=== PATIENT | female | born 1995 | race Caucasian/White ===

== ENCOUNTER 2021-02-26 10:39 | Emergency (ER) | payer OTHER, SELFPAY ==
[2021-02-26 11:02] VITALS: BP 107/66; PULSE 75; RESP 16; TEMP 37.2; O2SAT 100
--- NOTE | 2021-02-26 11:22 | ED.FEMALEGU ---
HPI - Female Genitourinary General Chief complaint: Urogenital-Female Stated complaint: UTI SYMPTOMS Source: patient Mode of arrival: ambulatory Limitations: no limitations History of Present Illness HPI Narrative: 25-year-old female presents to urgent care with complaints of urinary urgency and lower abdominal pressure for the past 2 to 3 days. Patient reports history of urinary tract infections and her symptoms are similar. Patient reports that she took 1 tablet of leftover Cipro last night. Patient denies vaginal discharge, concern for STDs, fever, bodies, chills, nausea, vomiting or diarrhea. Onset (ago): day(s) (2) Vaginal discharge: none Vaginal bleeding: none Urinary symptoms: Urgency Exacerbating factors: none Relieving factors: none Related Data Home Medications Medication Instructions Recorded Confirmed norgestimate-ethinyl estradiol 1 tablet PO DAILY 02/26/21 02/26/21 [Sprintec (28)] Allergies Allergy/AdvReac Type Severity Reaction Status Date / Time cefuroxime Allergy Unknown Unknown Verified 01/12/19 03:36 Review of Systems Constitutional: Constitutional: Denies chills and Denies fatigue Cardiovascular: Cardiovascular: Denies chest pain Respiratory: Respiratory: Denies cough, Denies dyspnea and Denies wheezing Gastrointestinal: Gastrointestinal: Denies diarrhea, Denies nausea and Denies vomiting Comments: lower abdominal pressure Genitourinary: Genitourinary: Denies nocturia, Denies dysuria, Denies flank pain, Denies urinary incontinence and Denies vaginal discharge Comments: Urinary urgency Neurologic: Denies dizziness PMFSH Social History Social History (Updated 02/26/21 @ 11:26 by Alexandria Adamson, [employer]SE [employer]AD[employer]) Smoking status: Never smoker Comments At time of signature, I agree with nursing past medical, surgical, social and family history. There is no relevant family history pertinent to the presenting complaint. Exam Const: General: no acute distress and alert Nutritional Appearance: well nourished Orientation/consciousness: patient oriented x3 Neck: Neck: normal visual inspection Resp: Effort & Inspection: normal respiratory effort Auscultation: clear to auscultation bilaterally Cardio: Rate: regular rate Rhythm: regular rhythm GI: GI Palp: Yes Soft to palpation, No Guarding due to palpation present (GI), No Rigid due to palpation, No Hernia present, No Palpable mass present and No Rebound tenderness present Auscultation: normal bowel sounds Other: Mild pain noted to suprapubic region upon palpation. : General: Yes bladder normal to palpation and Yes no CVA tenderness Back/Spine/Pelvis: Back: no CVA tenderness Skin: General skin exam: normal color Rashes: no rashes Neuro: General: patient oriented x3 and moves all extremities Speech: normal speech Extrem: General: normal to inspection Psych: Affect: normal affect Attitude: cooperative Thought content: Yes Normal thought content present Course Vital Signs Vital signs: Vital Signs Temperature 37.2 C 02/26/21 11:02 Pulse Rate 75 02/26/21 11:02 Respiratory Rate 16 02/26/21 11:02 Blood Pressure 107/66 02/26/21 11:02 Pulse Oximetry 100 02/26/21 11:02 Temperature 37.2 C 02/26/21 11:02 Pulse Rate 75 02/26/21 11:02 Respiratory Rate 16 02/26/21 11:02 Blood Pressure 107/66 02/26/21 11:02 Pulse Oximetry 100 02/26/21 11:02 MDM - Female Genitourinary MDM Narrative Medical decision making narrative: Urine culture obtained and sent to lab. Patient declines concern for STD testing. Patient agrees to take medications as prescribed. Patient agrees to monitor symptoms closely and proceed to the emergency room if symptoms worsen Differential Diagnosis Differential diagnosis: Likely bacterial vaginosis, trichomoniasis and cystitis Lab Data Labs: Urine Glucose Negative Reference Range: Negative Urine Bilirubin
== END 2021-02-26 11:35 | disposition home or self-care (01) ==
PROVIDERS: Emergency Provider Nurse Practitioner Family; PCP Physician Assistant Medical
DX: N30.00 Acute cystitis without hematuria (principal)
CPT/HCPCS: 81003; 87086; 99213; G0463

== ENCOUNTER 2022-11-03 16:33 | Emergency (ER) | payer OTHER, SELFPAY ==
--- NOTE | 2022-11-03 16:37 | ED.EAR ---
HPI - Ear Problem General Chief complaint: Ear Stated complaint: rt ear pain Time Seen by Provider: 11/03/22 16:37 Source: patient Mode of arrival: ambulatory Limitations: no limitations History of Present Illness HPI Narrative: Irma is a 26-year-old female patient presenting to the clinic today with complaints of right ear pain 3-4 days. Thinks that her ear may be coming infected. She reports has had a sinus infection for 3-4 weeks. She is taking doxycycline for this. States that she did get a steroid injection last week for the sinusitis however that has not improved very much. No fever or chills Related Data Home Medications Medication Instructions Recorded Confirmed norgestimate 0.25 mg-ethinyl 1 tablet PO DAILY 10/13/22 11/03/22 estradiol 35 mcg tablet (Merry) doxycycline hyclate 100 mg capsule 100 mg PO DAILY 11/03/22 11/03/22 Allergies Allergy/AdvReac Type Severity Reaction Status Date / Time cefuroxime AdvReac Mild Hives Verified 11/03/22 16:46 Review of Systems Review of Systems: Pertinent positives per HPI. Patient denies any fever, chills, rash, headache, visual changes, dizziness, shortness of breath, chest pain, palpitations, nausea, vomiting, diarrhea, constipation, abdominal pain, or any urinary issues. PMFSH Social History Social History Smoking status: Never smoker Alcohol intake: never Substance use: never Substance use type: does not use Lack of Transportation: No Lack of Food: Never True Current Housing: I Have Housing Concerned About Future Housing: No Difficulty Paying Gas/Electric Bills: No Difficulty Paying for Meds: No Currently Unemployed: No Education: High School Diploma/GED Difficulty w/ Childcare or Family Care: No Gender identity (if verbalized by the patient): Female Sexual Orientation (if Verbalized by the Patient): Straight or Heterosexual Comments At the time of my signature, I reviewed and agree with the nursing past medical, surgical, social, and family history. There is no relevant family history pertinent to the patient complaint. Exam Narrative: General: Well-developed, well nourished, in no apparent distress Head: Normocephalic, atraumatic Eyes: Pupils equally round and reactive to light bilaterally, EOM intact, sclera and conjunctive clear, no discharge, lids normal Ears: Left TMs intact and congested, right TM intact, red, and congested with mild bulging, ear canals clear, no drainage, grossly hearing normal. Nose: Nares patent, clear nares discharge, moderate inflammation, maxillary sinus tenderness. Mouth: Oral pharynx without lesions or masses, good dentition, MMM. Neck: Supple, trachea midline, no enlargement of anterior or posterior cervical nodes, no thyroid masses or goiter palpable. Cardio: Regular rate and rhythm, s1 and s2 normal, no murmur appreciated. Resp: Clear to auscultation bilaterally, no rhonchi, rales, wheezing or rubs Course Course Emergency Course: Portions of this record may have been created with voice recognition software. Level of Care: Express Care Visit Vital Signs Vital signs: Vital signs reviewed Medical Decision Making MDM Narrative Medical decision making narrative: At the time of visit patient is resting comfortably on the exam table. I suspect patient has right otitis media. Prescription for azithromycin and prednisone was sent to the pharmacy and she is encouraged to continue doxycycline. Supportive measures were discussed with the patient she voiced understanding of discharge instructions and agrees to treatment plan. Differential Diagnosis Differential Diagnosis: Otitis media, otitis externa, eustachian tube dysfunction, upper respiratory infection Discharge Plan Discharge Clinical Impression: Otitis media Qualifiers: Otitis media type: suppurative Chronicity: acute Laterality: right Recurrence: non-recurrent S
[2022-11-03 16:44] VITALS: BP 119/75; PULSE 73; RESP 18; TEMP 36.4; O2SAT 100
== END 2022-11-03 16:50 | disposition home or self-care (01) ==
PROVIDERS: Emergency Provider Nurse Practitioner Family; PCP Physician Assistant Medical
DX: H66.001 Acute suppurative otitis media without spontaneous rupture of ear drum, right ear (principal)
CPT/HCPCS: 99213; G0463

== ENCOUNTER 2023-11-13 11:59 | Emergency (ER) | payer BC, SELFPAY ==
--- NOTE | 2023-11-13 12:02 | ED.URI ---
HPI - URI/Sore Throat General Chief Complaint: Upper Respiratory Infection Stated Complaint: Sinus Infection Time Seen by Provider: 11/13/23 12:05 Source: patient, RN notes reviewed and old records reviewed Mode of arrival: ambulatory Limitations: no limitations History of Present Illness HPI Narrative: 27-year-old female presents to the [facility] with complaints of sinus pressure and a runny nose since last night. No treatment prior to arrival. Denies any other symptoms. Denies fevers. Denies concern for flu were COVID Related Data Home Medications Medication Instructions Recorded Confirmed norgestimate 0.25 mg-ethinyl 1 tablet PO DAILY 10/13/22 11/03/22 estradiol 35 mcg tablet (Merry) Allergies Allergy/AdvReac Type Severity Reaction Status Date / Time cefuroxime AdvReac Mild Hives Verified 04/03/23 11:54 Review of Systems Review of Systems: All systems reviewed & are unremarkable except as noted in HPI and below Constitutional: Constitutional: Reports no additional constitutional complaints Eyes: Eyes: Reports no additional eye complaints ENT: Reports as per HPI, Reports nasal discharge and Reports sinus pressure Cardiovascular: Cardiovascular: Reports no additional cardiovascular complaints, Denies chest pain and Denies dyspnea Respiratory: Respiratory: Reports no additional respiratory complaints, Denies chest congestion, Denies cough and Denies dyspnea Gastrointestinal: Gastrointestinal: Reports no additional gastrointestinal complaints, Denies abdominal pain, Denies nausea and Denies vomiting Musculoskeletal: Musculoskeletal: Reports no additional musculoskeletal complaints Integumentary/Breasts: Skin/Breast: Reports system reviewed and no additional complaints, except as docu Neurologic: Reports system reviewed and no additional complaints, except as documented Psychiatric: Psychiatric: Reports no additional psychiatric complaints Allergic/Immunologic: Allergic/Immunologic: Reports no additional allergic/immunologic complaints [facility] Surgical History Surgical History History of tonsillectomy and adenoidectomy History of wisdom tooth extraction 2020 Social History Social History Smoking status: Never smoker Alcohol intake: never Substance use: never Substance use type: does not use Lack of Transportation: No Lack of Food: Never True Current Housing: I Have Housing Concerned About Future Housing: No Difficulty Paying Gas/Electric Bills: No Difficulty Paying for Meds: No Currently Unemployed: No Education: High School Diploma/GED Difficulty w/ Childcare or Family Care: No Living arrangements: with family Occupation/Education: occupation Gender identity (if verbalized by the patient): Female Sexual Orientation (if Verbalized by the Patient): Straight or Heterosexual Comments At the time of my signature, I reviewed and agree with the nursing past medical, surgical, social, and family history. There is no relevant family history pertinent to the patient complaint. Exam Const: General: cooperative, healthy appearing, comfortable, no acute distress, well developed, alert and well nourished Nutritional Appearance: well nourished Orientation/consciousness: patient oriented x3 Limitations: no limitations HENMT: Head: normal to inspection Ears: hearing grossly normal bilaterally, external ears normal, TM's normal bilaterally, EAC's normal, mastoids normal and no periauricular adenopathy Face/Nose/Sinus: Normal external nose present, Normal nares present, Normal nasal mucous membranes and turbinates present, Normal septum present, No nasal discharge present, normal facial exam and face symmetric Face and sinus: normal facial exam, sinuses nontender, face symmetric and normal transillumination of the sinuses Mouth: Yes Normal oral and palatal mucosa present,
--- NOTE | 2023-11-13 19:19 | PC.NURSE ---
12:00p.m.vitals 5ft3,48.5k, 97.3temp., 126/76, 100% on room air, 82 HR
== END 2023-11-13 12:25 | disposition home or self-care (01) ==
PROVIDERS: Emergency Provider Nurse Practitioner; PCP Physician Assistant Medical
DX: J32.9 Chronic sinusitis, unspecified (principal)
CPT/HCPCS: 99211; G0463

== ENCOUNTER 2024-01-10 19:22 | Emergency (ER) | payer BC, SELFPAY ==
[2024-01-10 19:38] VITALS: BP 99/48; PULSE 115; RESP 18; TEMP 37.2; O2SAT 100
--- NOTE | 2024-01-10 19:44 | ED.URI ---
HPI - URI/Sore Throat General Chief Complaint: Upper Respiratory Infection Stated Complaint: lower extremity injury Time Seen by Provider: 01/10/24 19:45 Source: patient, RN notes reviewed and old records reviewed Mode of arrival: ambulatory Limitations: no limitations History of Present Illness HPI Narrative: 28-year-old female to Express Care with complaint of body aches, headache, sore throat and temp of 100.3? that started this morning. Patient endorses recent exposure to someone with influenza. Patient denies nausea, vomiting, diarrhea, abdominal pain. Patient able to tolerate fluids by mouth. Patient in no acute distress. Related Data Home Medications Medication Instructions Recorded Confirmed norgestimate 0.25 mg-ethinyl 1 tablet PO DAILY 10/13/22 01/10/24 estradiol 35 mcg tablet (Merry) apixaban 5 mg tablet (Eliquis) mg 01/10/24 Allergies Allergy/AdvReac Type Severity Reaction Status Date / Time cefuroxime AdvReac Mild Hives Verified 01/10/24 19:38 Review of Systems Review of Systems: All systems reviewed & are unremarkable except as noted in HPI and below Constitutional: Constitutional: Reports as per HPI, Reports body ache(s), Reports chills and Reports fever(s) Eyes: Eyes: Reports no additional eye complaints ENT: Reports as per HPI, Reports nasal discharge and Reports sore throat Cardiovascular: Cardiovascular: Reports no additional cardiovascular complaints, Denies chest pain and Denies dyspnea Respiratory: Respiratory: Reports no additional respiratory complaints, Denies cough and Denies dyspnea Musculoskeletal: Musculoskeletal: Reports no additional musculoskeletal complaints Neurologic: Reports system reviewed and no additional complaints, except as documented Psychiatric: Psychiatric: Reports no additional psychiatric complaints [facility] Surgical History Surgical History History of tonsillectomy and adenoidectomy History of wisdom tooth extraction 2020 Social History Social History Smoking status: Never smoker Alcohol intake: never Substance use: never Substance use type: does not use Lack of Transportation: No Lack of Food: Never True Current Housing: I Have Housing Concerned About Future Housing: No Difficulty Paying Gas/Electric Bills: No Difficulty Paying for Meds: No Currently Unemployed: No Education: High School Diploma/GED Difficulty w/ Childcare or Family Care: No Living arrangements: with family Occupation/Education: occupation Gender identity (if verbalized by the patient): Female Sexual Orientation (if Verbalized by the Patient): Straight or Heterosexual Comments At the time of my signature, I reviewed and agree with the nursing past medical, surgical, social, and family history. There is no relevant family history pertinent to the patient complaint. Exam Const: General: cooperative, no acute distress, alert, ill appearing, uncomfortable and well nourished Nutritional Appearance: well nourished Orientation/consciousness: patient oriented x3 Limitations: no limitations HENMT: Head: normal to inspection Ears: external ears normal Face/Nose/Sinus: Normal external nose present, Normal nares present, normal facial exam, No erythema and No edema Face and sinus: normal facial exam, no erythema and no edema Mouth: Yes Normal oral and palatal mucosa present Throat: posterior oropharynx abnormal erythema and exudates and postnasal drainage Eyes: General: appearance normal, both eyes and all related structures Neck: Neck: normal visual inspection, full ROM and no meningeal signs Lymphatic: no lymphadenopathy noted and no lymphedema noted Chest: Chest palpation & inspection: normal inspection of the chest Resp: Effort & Inspection: normal respiratory effort and able to speak in complete sentences Auscultation: cl
[2024-01-10 19:56] VITALS: BP 99/51; PULSE 101
== END 2024-01-10 20:08 | disposition home or self-care (01) ==
PROVIDERS: Emergency Provider Nurse Practitioner Family; PCP Physician Assistant Medical
DX: J02.0 Streptococcal pharyngitis (principal); Z20.822 Contact with and (suspected) exposure to COVID-19
CPT/HCPCS: 87426; 87804; 87880; 99213; G0463

== ENCOUNTER 2024-05-08 12:34 | Emergency (ER) | payer BC, SELFPAY ==
[2024-05-08 12:41] VITALS: BP 108/82; PULSE 73; RESP 18; TEMP 36.3; O2SAT 100
--- NOTE | 2024-05-08 12:46 | ED.BACK ---
HPI - Back Pain/Injury General Chief Complaint: Back Pain/Injury Stated Complaint: Lower Back Swelling Time Seen by Provider: 05/08/24 12:46 History of Present Illness HPI Narrative: patient presents with complaints of swelling to the lower back. She denies any injury or trauma. She reports symptoms have been present for a couple of days. She reports mild tenderness on palpation. She voices no other concerns or complaints at this time. Related Data Home Medications Medication Instructions Recorded Confirmed norgestimate 0.25 mg-ethinyl 1 tablet PO DAILY 10/13/22 05/08/24 estradiol 35 mcg tablet (Merry) Allergies Allergy/AdvReac Type Severity Reaction Status Date / Time cefuroxime AdvReac Mild Hives Verified 05/08/24 12:44 Review of Systems Review of Systems: All systems reviewed & are unremarkable except as noted in HPI and below Constitutional: Constitutional: Reports no additional constitutional complaints ENT: Reports system reviewed and no additional complaints, except as documented Cardiovascular: Cardiovascular: Reports no additional cardiovascular complaints Respiratory: Respiratory: Reports no additional respiratory complaints Gastrointestinal: Gastrointestinal: Reports no additional gastrointestinal complaints Integumentary/Breasts: Skin/Breast: Reports skin swelling ( Sacral area) [facility] Past Medical History Medical History Acute sinusitis Surgical History Surgical History History of tonsillectomy and adenoidectomy History of wisdom tooth extraction 2020 Family History Family History Grandparent Asthma Hypertension Leukemia Diabetes mellitus Social History Social History Smoking status: Never smoker Alcohol intake: never Substance use: never Substance use type: does not use Lack of Transportation: No Lack of Food: Never True Current Housing: I Have Housing Concerned About Future Housing: No Difficulty Paying Gas/Electric Bills: No Difficulty Paying for Meds: No Currently Unemployed: No Education: High School Diploma/GED Difficulty w/ Childcare or Family Care: No Living arrangements: with family Occupation/Education: occupation Gender identity (if verbalized by the patient): Female Sexual Orientation (if Verbalized by the Patient): Straight or Heterosexual Exam Const: General: cooperative, no acute distress, alert and awake Orientation/consciousness: oriented to person, oriented to place and oriented to time HENMT: Head: normal to inspection Resp: Effort & Inspection: normal respiratory effort and able to speak in complete sentences Auscultation: clear to auscultation bilaterally, no crackles, no rales, no rhonchi and no wheezes Cardio: Palpation: normal PMI Rate: regular rate Rhythm: regular rhythm Heart sounds: S1 normal heart sound present and S2 normal heart sound present Skin: Full body images: 1. mild swelling Neuro: General: oriented to person, oriented to place and oriented to time Cranial nerves: Yes CN's II-XII intact bilaterally Psych: Appearance: grossly normal Thought process: Normal thought process present Insight: Good insight present (Psych) Judgement: Good judgement present (Psych) Course Course Level of Care: Express Care Visit Vital Signs Vital signs: Vital Signs Temperature 97.3 F L 05/08/24 12:41 Pulse Rate 73 05/08/24 12:41 Respiratory Rate 05/08/24 12:41 Blood Pressure 108/82 05/08/24 12:41 Pulse Oximetry 100 05/08/24 12:41 Oxygen Delivery Room Air 05/08/24 12:41 Temperature 97.3 F L 05/08/24 12:41 Pulse Rate 73 05/08/24 12:41 Respiratory Rate 18 05/08/24 12:41 Blood Pressure 108/82 05/08/24 12:41 Pulse Oximetry 100 05/08/24 12:
== END 2024-05-08 12:57 | disposition home or self-care (01) ==
PROVIDERS: Emergency Provider Nurse Practitioner Family; PCP Physician Assistant Medical
DX: M54.50 Low back pain, unspecified (principal)
CPT/HCPCS: 99213; G0463

== ENCOUNTER 2024-10-01 10:45 | Emergency (ER) | payer BC, SELFPAY ==
[2024-10-01 10:58] VITALS: BP 112/78; PULSE 73; RESP 16; TEMP 36.4; O2SAT 100
--- NOTE | 2024-10-01 11:10 | ED_ITS ---
HPI - Ear Problem General Chief complaint: Ear Stated complaint: ear infection Time Seen by Provider: 10/01/24 11:04 Source: patient and RN notes reviewed Mode of arrival: ambulatory Limitations: no limitations History of Present Illness HPI Narrative: Patient presents today with a 2 day history of bilateral ear pressure and popping. Denies pain. She has tried some Mucinex without much relief. Related Data Home Medications ?Medication ?Instructions ?Recorded ?Confirmed ?Last Taken ?Type norgestimate 0.25 mg-ethinyl 1 tablet PO DAILY 10/13/22 05/08/24 Unknown History estradiol 35 mcg tablet (Merry) Allergies Allergy/AdvReac Type Severity Reaction Status Date / Time cefuroxime Allergy Mild Hives Verified 10/01/24 10:59 Review of Systems Review of Systems: CONSTITUTIONAL: Denies body aches, fever, chills, or sweats. EYES: Denies visual changes, redness, or discharge. ENT: Denies rhinorrhea, congestion, sore throat, or otalgia.+ bilateral ear pressure and popping CARDIOVASCULAR: Denies chest pain, palpitations, or edema. RESPIRATORY: Denies cough or dyspnea. GASTROINTESTINAL: Denies abdominal pain, nausea, vomiting, or diarrhea. GENITOURINARY: Denies dysuria or hematuria. SKIN: Denies rash, itching, or wounds. MUSCULOSKELETAL: Denies back pain, joint pain, or myalgia. NEUROLOGIC: Denies headache, numbness, tingling, or weakness. PSYCH: Denies depression or anxiety. [facility] Past Medical History Medical History Acute sinusitis Surgical History Surgical History History of tonsillectomy and adenoidectomy History of wisdom tooth extraction 2020 Family History Family History Grandparent Asthma Hypertension Leukemia Diabetes mellitus Social History Social History Smoking status: Never smoker Alcohol intake: never Substance use: never Substance use type: does not use Lack of Transportation: No Lack of Food: Never True Current Housing: I Have Housing Concerned About Future Housing: No Difficulty Paying Gas/Electric Bills: No Difficulty Paying for Meds: No Currently Unemployed: No Education: High School Diploma/GED Difficulty w/ Childcare or Family Care: No Living arrangements: with family Occupation/Education: occupation Gender identity (if verbalized by the patient): Female Sexual Orientation (if Verbalized by the Patient): Straight or Heterosexual Comments At time of signature, I have reviewed and agree with nursing past medical, surgical, social and family history unless otherwise noted. Please see nursing chart for further information. There is no relevant family history pertinent to the presenting complaint Exam Narrative: GENERAL: Well-appearing, well-nourished, and in no acute distress. HEAD: Normocephalic, atraumatic. EYES: EOMI. No redness or drainage. Conjunctivae normal. ENT: Mucous membranes pink and moist. Nares clear. No rhinorrhea. TMs normal bilaterally with mild bilateral middle ear effusions without evidence of bacterial infection. NECK: Normal AROM. Supple. No lymphadenopathy. CHEST: No respiratory distress. EXTREMITIES: Normal range of motion. No edema. SKIN: Warm, dry, no rash. Capillary refill normal. Normal skin turgor. NEURO: No focal deficits. Alert and oriented x3. Gait steady. PSYCH: Normal affect. No signs of depression or anxiety. Course Course Level of Care: Express Care Visit Vital Signs Vital signs: Vital Signs Temperature 97.5 F L 10/01/24 10:58 Pulse Rate 73 10/01/24 10:58 Respiratory Rate 16 10/01/24 10:58 Blood Pressure 112/78 10/01/24 10:58 Pulse Oximetry 100 10/01/24 10:58 Oxygen Delivery Room Air 10/01/24 10:58 Temperature 97.5 F L 10/01/24 10:58 Pulse Rate 73 10/01/24 10:58 Respiratory Rate 16 10/01/24 10:58 Blood Pressure 112/78 10/01/24 10:58 Pulse Oximetry 100 10/01/24 10:58 Oxygen Delivery Room Air 10/01/24 10:58 Reviewed Medical Decision Making MDM Narrative Medical decision making narrative: Patient has some mild middle ear effusions. Recommend decongestant and Flonase. No prescription medications indicated at this time. Anticipatory guidance given. Differential Diagnosis Differential Diagnosis: Otitis media, otitis externa, ruptured TM, serous otitis, cerumen impaction Vital Signs Vital Signs: Vital Signs Temperature 97.5 F L 10/01/24 10:58 Pulse Rate 73 10/01/24 10:58 Respiratory Rate 16 10/01/24 10:58 Blood Pressure 112/78 10/01/24 10:58 Pulse Oximetry 100 10/01/24 10:58 Oxygen Delivery Room Air 10/01/24 10:58 Temperature 97.5 F L 10/01/24 10:58 Pulse Rate 73 10/01/24 10:58 Respiratory Rate 16 10/01/24 10:58 Blood Pressure 112/78 10/01/24 10:58 Pulse Oximetry 100 10/01/24 10:58 Oxygen Delivery Room Air 10/01/24 10:58 Critical Care Time Critical Care Time Critical Care Time: No Discharge Plan Discharge Clinical Impression: Acute serous otitis media, bilateral Patient Disposition: Home, Self-Care Condition: Stable Instructions: Fluid In The Ear (Serous Otitis Media) (ED) Additional Instructions: You have a small amount of fluid behind both eardrums, but no evidence of infection. Please use a decongestant such as Sudafed and consider an intranasal steroid such as Flonase to help drain this fluid. Take Tylenol or ibuprofen for pain if needed. Follow-up with your PCP next week if symptoms are not improving. Patient Language: Mongolian Prescriptions: No Action norgestimate-ethinyl estradiol [Merry] 0.25-35 mg-mcg tablet 1 tablet PO DAILY Follow-up/Referrals: Pam Colón PA-C [Primary Care Provider] - Time of Disposition: 11:14
== END 2024-10-01 11:25 | disposition home or self-care (01) ==
PROVIDERS: Emergency Provider Nurse Practitioner; PCP Physician Assistant Medical
DX: H65.03 Acute serous otitis media, bilateral (principal)
CPT/HCPCS: 99211; G0463

== ENCOUNTER 2025-07-01 09:11 | Emergency (ER) | payer OTHER, SELFPAY ==
--- NOTE | 2025-07-01 09:16 | ED.GENADULT ---
HPI - General Adult General Chief complaint: Abdominal Pain Stated complaint: Abd Pain Time Seen by Provider: 07/01/25 09:16 Source: patient Mode of arrival: ambulatory Limitations: no limitations History of Present Illness HPI narrative: Pt is a 29 y/o female presenting with c/o LUQ pain x 1 week. She reports sharp pain x 2 days and now a dull ache with palpation--pain has improved. No N,V,D,Constipation. NO known injury. 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 No alleviating or aggravating factors. NO additional complaints. Related Data Home Medications ?Medication ?Instructions ?Recorded ?Confirmed ?Last Taken ?Type norgestimate 0.25 mg-ethinyl 1 tablet PO DAILY 10/13/22 07/01/25 Unknown History estradiol 0.035 mg tablet (Merry) Allergies Allergy/AdvReac Type Severity Reaction Status Date / Time cefuroxime Allergy Mild Hives Verified 07/01/25 09:19 Review of Systems Review of Systems: CONSTITUTIONAL: Denies body aches, fever, chills, or sweats. EYES: Denies visual changes, redness, or discharge. ENT: Denies rhinorrhea, congestion, sore throat, or otalgia. CARDIOVASCULAR: Denies chest pain, palpitations, or edema. RESPIRATORY: Denies cough or dyspnea. GASTROINTESTINAL: Reports abdominal pain, denies nausea, vomiting, or diarrhea. GENITOURINARY: Denies dysuria or hematuria. SKIN: Denies rash, itching, or wounds. MUSCULOSKELETAL: Denies back pain, joint pain, or myalgia. NEUROLOGIC: Denies headache, numbness, tingling, or weakness. PSYCH: Denies depression or anxiety. All systems reviewed & are unremarkable except as noted in HPI and below (HPI) [facility] Past Medical History Medical History Acute sinusitis Surgical History Surgical History History of tonsillectomy and adenoidectomy History of wisdom tooth extraction 2020 Family History Family History Grandparent Asthma Hypertension Leukemia Diabetes mellitus Social History Social History (Reviewed 07/01/25 @ 10:23 by NIK Everett Smoking status: Never smoker Alcohol intake: never Substance use: never Substance use type: does not use Lack of Transportation: No Lack of Food: Never True Current Housing: I Have Housing Concerned About Future Housing: No Difficulty Paying Gas/Electric Bills: No Difficulty Paying for Meds: No Currently Unemployed: No Education: High School Diploma/GED Difficulty w/ Childcare or Family Care: No Living arrangements: with family Occupation/Education: occupation Gender identity (if verbalized by the patient): Female Sexual Orientation (if Verbalized by the Patient): Straight or Heterosexual Exam Narrative: GENERAL: Well-appearing, well-nourished, and in no acute distress. HEAD: Normocephalic, atraumatic. EYES: EOMI. No redness or drainage. Conjunctivae normal. NECK: Normal AROM. Supple. CHEST: No respiratory distress. Clear to auscultation. HEART: Regular rate and rhythm. No murmur appreciated. Normal peripheral pulses. ABDOMEN: Soft, nontender, nondistended, normal active bowel sounds. No CVAT MUSCULOSKELETAL: No bony tenderness. EXTREMITIES: Normal range of motion. No edema. SKIN: Warm, dry, no rash. Capillary refill normal. Normal skin turgor. NEURO: No focal deficits. Alert and oriented x3. Gait steady. PSYCH: Normal affect. No signs of depression or anxiety. Course Course Level of Care: Express Care Visit Vital Signs Vital signs: Vital Signs Temperature 97.1 F L 07/01/25 09:31 Pulse Rate 82 07/01/25 09:31 Respiratory Rate 16 07/01/25 09:31 Blood Pressure 118/92 H 07/01/25 09:31 Pulse Oximetry 100 07/01/25 09:31 Oxygen Delivery Room Air 07/01/25 09:31 Temperature 97.1 F L 07/01/25 09:31 Pulse Rate 82 07/01/25 09:31 Respiratory Rate 16 07/01/25 09:31 Blood Pressure 118/92 H 07/01/25 09:31 Pulse Oximetry 100 07/01/25 09:31 Oxygen Delivery Room Air 07/01/25 09:31 Medical Decision Making MDM Narrative Medical decision making narrative: Unable to elicit any pain with palpation. VSS. Pain has improved since onset. Rec'd symptomatic treatment, close f/u with PCP, strict go to ER precautions discussed. No sx, not treating urine unless culture shows growth. Vital Signs Vital Signs: Vital Signs Temperature 97.1 F L 07/01/25 09:31 Pulse Rate 82 07/01/25 09:31 Respiratory Rate 16 07/01/25 09:31 Blood Pressure 118/92 H 07/01/25 09:31 Pulse Oximetry 100 07/01/25 09:31 Oxygen Delivery Room Air 07/01/25 09:31 Temperature 97.1 F L 07/01/25 09:31 Pulse Rate 82 07/01/25 09:31 Respiratory Rate 16 07/01/25 09:31 Blood Pressure 118/92 H 07/01/25 09:31 Pulse Oximetry 100 07/01/25 09:31 Oxygen Delivery Room Air 07/01/25 09:31 Lab Data Labs: Lab Results 07/01/25 Range/Units 09:45 POC Urine Color Yellow POC Urine Clarity Clear POC Urine pH 6.0 POC Ur Specif [place] 1.025 POC Urine Protein Negative (Negative) POC Ur Glucose (UA) Negative (Negative) POC Urine Ketones Negative (Negative) POC Urine Blood Trace (Negative) POC Urine Nitrite Negative (Negative) POC Urine Bilirubin Negative (Negative) POC Urine Urobilinogen 0.2 POC U Leukocyte Esteras Trace (Negative) Discharge Plan Discharge Clinical Impression: Abdominal pain, LUQ Patient Disposition: Home Condition: Stable Instructions: Abdominal Pain (ED) Additional Instructions: Go straight to ER should your symptoms become worse or should any new symptoms develop Patient Language: Welsh Prescriptions: No Action norgestimate-ethinyl estradiol [Merry] 0.25-35 mg-mcg tablet 1 tablet PO DAILY Follow-up/Referrals: PHYSICIAN NOT ON STAFF,NONSTAFF [Primary Care Provider] - 07/02/25 Time of Disposition: 10:20
[2025-07-01 09:31] VITALS: BP 118/92; PULSE 82; RESP 16; TEMP 36.2; O2SAT 100
[2025-07-01 09:48] LABS: EDUAAPPEAR Clear; EDUABILI Negative (Negative); EDUABLOOD Trace (Negative); EDUACOLOR1 Yellow; EDUAGLUCOSE Negative (Negative); EDUAKETONE Negative (Negative); EDUALEUKO Trace (Negative); EDUANITRATE Negative (Negative); EDUAPH 6.0; EDUAPROTEIN Negative (Negative); EDUASPGRAVITY 1.025; EDUAUROBILI 0.2
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
--- OUTSIDE RECORDS SUMMARY | 2025-07-01 09:57 | XMS_ITS | Clinical Summary ---
Author Organization [facility] Address [address] [place] [id number] Care Team Providers Care Design Verification Engineer Name Role Phone Allyson De Los Santos MD Primary Care Provider + Allergies Active Allergy Reactions Criticality Noted Date Comments Cefuroxime Unknown 10/03/2012 Medications norgestimate-eth inyl estradiol (ORTHO-CYCLEN) 0.25-35 MG-MCG tablet Take 1 tablet by mouth daily. 12/12/2023 Active Active Problems No known active problems Immunizations Immunization Administration Dates Next Due Tdap (Generic) 12/23/2023 Family History Medical History Relation Comments Hyperlipidemia Father Vision loss Maternal Aunt No Known Problems Mother Cancer Paternal Aunt No Known Problems Sister Relation Status Comments Father Alive Maternal Aunt Mother Alive Paternal Aunt Sister Alive Social History Tobacco Use Types Packs/Day Years Used Date Smoking Tobacco: Never Passive Smoke Exposure: Past Smokeless Tobacco: Never Tobacco Cessation:Counseling Given: No Alcohol Use Standard Drinks/Week Comments Yes 0 (1 standard drink = 0.6 oz pur e alcohol) socially, 1/month PHQ-2 Answer Date Recorded Patient Health Questionnaire-2 Score 0 11/25/2024 Comments Unknown Sex and Gender Information Value Date Recorded Sex Assigned at Not on file Legal Sex Female 7:14 PM CDT Gender Identity Not on file Sexual Orientation Not on file 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 Not on file Not on file Last Filed Vital Signs Vital Sign Reading Time Taken Comments Blood Pressure 110/70 11/25/2024 8: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 Pulse 77 11/25/2024 8: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 Temperature 36.8 C (98.3 F) 11/25/2024 8: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 Respiratory Rate - - Oxygen Saturation 99% 11/25/2024 8: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 Inhaled Oxygen Concentration - - Weight 53.3 kg (117 lb 9.6 oz) 11/25/2024 8:33 A M 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 Height 160 cm (5' 3) 11/25/2024 8: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 Body Mass Index 20.83 11/25/2024 8: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 Plan of Treatment Upcoming Encounters Date Type Department Care Team (Late st Contact Info) Description 12/07/2025 8:30 AM 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 Office Visit [facility] Family [facility] - [place] [address] [place] [address] [phone] Allyson De Los Santos MD [address] [place] [address] [phone] Health Maintenance Due Date Last Done Comments Cervical Cancer Screening Pa p Smear (Age 21 to 29) Every 3 Years 1996 Cervical Cancer Screening 1996 Hepatitis C 2014 Hepatitis B Vaccines (1 of 3 - 19+ 3-dose series) 2015 HPV Vaccines (1 - 3-dose SCD M series) 2023 COVID-19 Vaccine ( - 2023-2 5 season) 2025 Annual Physical 11/25/2025 11/25/2024 DTaP, Tdap and Td Vaccines ( 2 - Td or Tdap) 12/22/2033 12/23/2023 PHQ-2 (Physician [place]) Completed 11/25/2024 Meningococcal B Vaccine Aged Out No l onger eligible based on patient's age to complete this topic Meningococcal Vaccine Aged Out No cele eric eligible based on patient's age to complete this topic Pneumococcal Vaccine: Pediat rics (0 to 5 Years) and At-Risk Patients (6 to 49 Years) Aged Out No longer eligi ble based on patient's age to complete this topic RSV Immunizations Under 20 Months Aged Out No longer eligible based on patient's age to complete this topic Insurance [facility] Care Teams Design Verification Engineer Relationship Specialty Start Date End Date Allyson De Los Santos MD [address] [place] [id number] PCP - General FAMILY PRACTICE 10/27/24
== END 2025-07-01 10:22 | disposition home or self-care (01) ==
PROVIDERS: Emergency Provider Registered Nurse
DX: R10.12 Left upper quadrant pain (principal)
CPT/HCPCS: 81003; 87086; 99213; G0463